=== PATIENT | female | born 1970 | race African-American/Black ===

== ENCOUNTER → 2018-10-25 | Day surgery (SDC) | payer BC ==
--- NOTE | 2018-10-26 16:12 | PATH ---
Cytology Non-Gynecological Report Patient Name: ROYER JIMENEZ [facility]. Rec. #: [id number] /Age/Gender: 1970 (Age: 47) / F Account: [id number] Location: RADIOLOGY INTER Taken: 10/25/2018 Received: 10/25/2018 Reported: 10/26/2018 Physicians: Jia Liao M.D. Specimen(s) Received LEFT THYROID FNA Clinical History Left thyroid nodule, 4.93 x 2.02 x 3.22 cm Final Diagnosis THYROID, LEFT, FINE NEEDLE ASPIRATION: SATISFACTORY FOR EVALUATION. B[place] CLASS II: BENIGN. CYTOLOGIC FINDINGS ARE CONSISTENT WITH A BENIGN FOLLICULAR NODULE. SMALL FOLLICULAR CELLS AND COLLOID PRESENT. Electronically Signed Jessica Do M.D. Gross Description Received are eight direct smears, four of which are air-dried and Diff-Quik stained, and four of which are alcohol fixed and Pap stained. Also received is 20 ml of bloody formalin from which one cellblock is prepared.
== END | disposition home or self-care (01) ==
LOC: JRADIR 08:45
PROVIDERS: ATTEND Internal Medicine
PROC: 0G9G3ZX Drainage of Left Thyroid Gland Lobe, Percutaneous Approach, Diagnostic (ICD-10-PCS; principal; 2018-10-25)
DX: E04.1 Nontoxic single thyroid nodule (principal)
CPT/HCPCS: 10005; 76942; 88173; 88305-TC